=== PATIENT | female | born 1955 | race African-American/Black ===

== ENCOUNTER 2019-08-20 23:29 | Emergency (ER) | payer SELFPAY ==
[~2019-08-20] VITALS: Ht 154.9 cm; Wt 52.0 kg
[~2019-08-20 23:29] MED LIST: BACL10TA PO; EPIN0.3P4 INJ; FLUC150T PO; HYDR-4011 PO; MELO7.5T38 PO; METR500T PO; NITR-58 PO; PRED20TA PO; SULF1TAB31 PO
[2019-08-20 23:34] VITALS: BP 147/92; PULSE 78; RESP 18; Ht 154.9 cm; Wt 52.0 kg
[2019-08-21] MEDS ORDERED: FAMOTIDINE 20 MG TAB PO ONE (02:30)
[2019-08-21] MEDS ORDERED: DIPHENHYDRAMINE 25 MG CAP PO ONE (02:30)
[2019-08-21] MEDS ORDERED: predniSONE 5 MG TAB PO ONE (02:30)
== END 2019-08-21 02:46 | disposition home or self-care (01) ==
LOC: FTE 23:29
DX: N30.00 Acute cystitis without hematuria (principal); R21 Rash and other nonspecific skin eruption
CPT/HCPCS: 99283; J7512